=== PATIENT | female | born 1980 | race African-American/Black ===

== ENCOUNTER 2023-04-03 19:18 | Observation (INO) | payer OTHER ==
[2023-04-03 20:25] LABS: EPI CELLS >36 /uL (0-25.1); HYALINE CASTS 1 /uL (0-3.1); PH,URINE 7.5 (5.0-8.0); URINE APPEARANCE CLOUDY; URINE BACTERIA 477 /uL (0-1359); URINE BILIRUBIN NEGATIVE (NEGATIVE); URINE COLOR YELLOW; URINE GLUCOSE (UA) NEGATIVE (NEGATIVE); URINE KETONE NEGATIVE (NEGATIVE); URINE LEUK ESTERASE TRACE (NEGATIVE); URINE NITRITE NEGATIVE (NEGATIVE); URINE PROTEIN 1+ (NEGATIVE); URINE RBC 38 /uL (0-23.9); URINE UROBILINOGEN 0.2 mg/dL (0.2-1.0); URINE WBC 23 /uL (0-25.8)
[2023-04-03 20:29] LABS: INR 0.97 (0.83-1.09); PROTHROMBIN TIME (PATIENT) 11.3 SEC (9.7-13.0)
[2023-04-03 20:32] LABS: ACTIVATED PTT 29.8 SECONDS (25.2-36.5)
[2023-04-03 20:37] LABS: PHENCYCLIDINE,URINE NEGATIVE (NEGATIVE)
[2023-04-03 20:38] LABS: COCAINE, UR NEGATIVE (NEGATIVE); METHADONE, UR NEGATIVE (NEGATIVE); OPIATES, URI NEGATIVE (NEGATIVE); URINE BENZODIAZEPINES NEGATIVE (NEGATIVE)
[2023-04-03 20:44] LABS: CHLORIDE 103 mmol/L (98-107); POTASSIUM 4.8 mmol/L (3.5-5.1); SODIUM 139 mmol/L (136-145)
[2023-04-03 20:46] LABS: CALCIUM 9.1 mg/dL (8.5-10.1)
[2023-04-03 20:47] LABS: ALBUMIN 3.8 g/dl (3.4-5.0); ANION GAP 7 MMOL/L (8-16); CO2 28 mmol/L (21-32)
[2023-04-03 20:48] LABS: BLOOD UREA NITROGEN 8.7 mg/dL (7-18); GLUCOSE,RANDOM 93 mg/dL (74-106)
[2023-04-03 20:50] LABS: CREATININE 0.8 mg/dL (0.55-1.3); SGOT/AST 41 U/L (15-37); SGPT/ALT 23 U/L (13-61)
[2023-04-03 20:51] LABS: CHOLESTEROL 180 mg/dL (50-200)
[2023-04-03 20:52] LABS: LDL CHOLESTEROL (ONLY SJRH) 107 mg/dL (5-100); TOT PROT 8.1 g/dl (6.4-8.2)
[2023-04-03 20:52] LABS: URINE AMPHETAMINES NEGATIVE (NEGATIVE); URINE BARBITURATES NEGATIVE (NEGATIVE)
[2023-04-03 20:53] LABS: BASO % 0.6 % (0-2.0); BILIRUBIN,TOTAL 0.7 mg/dL (0.2-1); EOS % 1.3 % (0-4.5); HEMATOCRIT 41.2 % (32.4-45.2); HEMOGLOBIN 14.1 GM/dL (10.7-15.3); LYMPH % 29.9 % (8-40); MCH 29.9 pg (25.7-33.7); MCHC 34.2 g/dl (32.0-36.0); MEAN CELL VOLUME 87.3 fl (80-96); MEAN PLT VOLUME 8.6 fl (7.5-11.1); MONO % 5.5 % (3.8-10.2); NEUT % 62.7 % (42.8-82.8); PLATELET COUNT 355 10^3/uL (134-434); RBC 4.72 M/mm3 (3.60-5.2); RDW 15.2 % (11.6-15.6); WHITE BLOOD COUNT 10.1 K/mm3 (4.0-10.0)
[2023-04-03 20:54] LABS: ALK PHOS 131 U/L (45-117); HDL CHOLESTEROL 58 mg/dL (40-60)
[2023-04-03] MEDS ORDERED: amLODIPine BESYLATE 5 MG TABLET (FP) PO ONE (22:20)
[2023-04-03] MEDS ORDERED: LOSARTAN POTASSIUM 50 MG TABLET PO ONE (22:21)
[2023-04-03] MEDS ORDERED: hydrALAZINE HCL 20 MG/ML VIAL IVPUSH PRN (22:23)
[2023-04-03] MEDS ORDERED: amLODIPine BESYLATE 5 MG TABLET (FP) ONE (22:32)
[2023-04-03] MEDS ORDERED: LOSARTAN POTASSIUM 50 MG TABLET ONE (22:32)
[2023-04-03] MEDS ORDERED: hydrALAZINE HCL 20 MG/ML VIAL ONE (23:54)
[2023-04-04] MEDS ORDERED: SODIUM CHLORIDE 500 ML IV STA (00:17)
[2023-04-04 06:55] LABS: HEMOGLOBIN 12.7 GM/dL (10.7-15.3); MCHC 32.6 g/dl (32.0-36.0); MEAN CELL VOLUME 88.9 fl (80-96); MEAN PLT VOLUME 8.3 fl (7.5-11.1); PLATELET COUNT 350 10^3/uL (134-434); RBC 4.38 M/mm3 (3.60-5.2); WHITE BLOOD COUNT 12.4 K/mm3 (4.0-10.0)
[2023-04-04 07:18] LABS: POTASSIUM 3.6 mmol/L (3.5-5.1)
[2023-04-04 07:21] LABS: CALCIUM 8.8 mg/dL (8.5-10.1)
[2023-04-04 07:22] LABS: ALBUMIN 3.7 g/dl (3.4-5.0); BLOOD UREA NITROGEN 8.6 mg/dL (7-18); MAGNESIUM 2.2 mg/dL (1.8-2.4)
[2023-04-04 07:25] LABS: CREATININE 0.8 mg/dL (0.55-1.3); PHOSPHOROUS 2.1 mg/dL (2.5-4.9)
[2023-04-04 07:26] LABS: BILIRUBIN,TOTAL 0.8 mg/dL (0.2-1)
[2023-04-04 07:27] LABS: TOT PROT 7.5 g/dl (6.4-8.2)
[2023-04-04] MEDS ORDERED: HYDROCHLOROTHIAZIDE 12.5 MG CAPSULE (FP) PO SCH (10:00)
[2023-04-04] MEDS ORDERED: LOSARTAN POTASSIUM 50 MG TABLET PO SCH (10:00)
[2023-04-04] MEDS ORDERED: amLODIPine BESYLATE 5 MG TABLET (FP) PO SCH (10:00)
[2023-04-04] MEDS ORDERED: amLODIPine BESYLATE 5 MG TABLET (FP) ONE (11:18)
[2023-04-04] MEDS ORDERED: LOSARTAN POTASSIUM 50 MG TABLET ONE (11:19)
[2023-04-04] MEDS ORDERED: ENOXAPARIN NA (PORCINE) 40 MG/0.4 ML DISP.SYRIN SQ ONE (11:19)
[2023-04-04] MEDS: ENOXAPARIN NA (PORCINE) 40 MG/0.4 ML DISP.SYRIN SQ SCH (11:29)
[2023-04-04 12:39] VITALS: BMI 29.8
[2023-04-05] MEDS ORDERED: amLODIPine BESYLATE 10 MG TABLET (FP) PO SCH (10:00)
[2023-04-05] MEDS ORDERED: NADOLOL 40 MG TABLET (FP) PO SCH (10:00)
[2023-04-05] MEDS: ENOXAPARIN NA (PORCINE) 40 MG/0.4 ML DISP.SYRIN SQ SCH (10:53)
[2023-04-05] MEDS ORDERED: NAPH,MB-DB/K PH,MBDB POWDER PACKET PO ONE (13:36)
[2023-04-05 15:06] VITALS: BP 131/81; PULSE 67; RESP 19; TEMP 98.4
== END 2023-04-05 16:30 | disposition home or self-care (01) ==
LOC: JER 19:18 → INTOOBSV 21:53 → UNDOADMOB 21:53 → JERBED 21:53 → J4W 04-04 15:29 → JERBED 04-04 15:29 → J4W 04-05 09:16 → JERBED 04-05 09:16
PROVIDERS: ADMIT Internal Medicine; ATTEND Internal Medicine
PROC: 3E033GC Introduction of Other Therapeutic Substance into Peripheral Vein, Percutaneous Approach (ICD-10-PCS; principal; 2023-04-05)
PROC: 3E0337Z Introduction of Electrolytic and Water Balance Substance into Peripheral Vein, Percutaneous Approach (ICD-10-PCS; 2023-04-05)
DX: I67.4 Hypertensive encephalopathy (principal); D72.829 Elevated white blood cell count, unspecified; R51.9 Headache, unspecified; Z91.199 Patient's noncompliance with other medical treatment and regimen due to unspecified reason; Z88.5 Allergy status to narcotic agent; Z84.89 Family history of other specified conditions; Z88.8 Allergy status to other drugs, medicaments and biological substances
CPT/HCPCS: 36415; 70450-TC; 70496-TC; 70498-TC; 70551-TC; 71045-TC-FY; 80053; 80061; 80307; 81003; 82550; 82553; 82962; 83036; 83735; 84100; 84484; 85025; 85027; 85610; 85730; 86850; 86900; 86901; 87086; 87186; 93005; 93010; 93306-TC; 93880-TC; 99285-25; G0378